=== PATIENT | female | born 2000 | race Caucasian/White ===

== ENCOUNTER 2022-01-30 01:00 | Inpatient (IN) | payer BC, MEDICAID ==
[~2022-01-30 01:00] MED LIST: Bupivacaine 0.25% 10 ML SDV ONE
[2022-01-30] MEDS ORDERED: Lidocaine 1% 50 ML MDV INJECT PRN (01:23)
[2022-01-30] MEDS ORDERED: Nalbuphine HCl 10 MG/ 1ML Amp IVPUSH PRN (01:23)
[2022-01-30] MEDS ORDERED: Ondansetron 4 MG/2 ML SDV IVPUSH PRN (01:23)
[2022-01-30] MEDS ORDERED: Ampicillin 2 GM in Sodium Chloride 0.9% 100 ML IV ONE (01:23)
[2022-01-30] MEDS ORDERED: Calcium Carbonate 500 MG Tab.Chew PO PRN (01:23)
[2022-01-30] MEDS ORDERED: Oxytocin/Lactated Ringers 10 UNIT/1,000 ML BAG IV SCH ×2 (01:30→13:30)
[2022-01-30] MEDS ORDERED: Ampicillin 2 GM AdvVial IV ONE (01:36)
[2022-01-30] MEDS ORDERED: Sodium Chloride 0.9% 100 ML ONE (01:36)
[2022-01-30] MEDS: Lactated Ringers 1,000 ML IV SCH ×2 (01:43→09:13)
[2022-01-30] MEDS: Ampicillin 1 GM in Sodium Chloride 0.9% 100 ML IV SCH ×2 (05:33→09:14)
[2022-01-30] MEDS ORDERED: fentaNYL 100 MCG/2 ML SDV EPIDUR PRN (09:17)
[2022-01-30] MEDS ORDERED: Bupivacaine/fentaNYL/NS 100 ML Bag EPIDUR PRN (09:17)
[2022-01-30] MEDS ORDERED: ePHEDrine 50 MG/ML SDV IVPUSH PRN (09:17)
[2022-01-30] MEDS ORDERED: diphenhydrAMINE 50 MG/ML SDV IVPUSH PRN (09:17)
[2022-01-30] MEDS ORDERED: Acetaminophen 325 MG Tab PO PRN (13:30)
[2022-01-30] MEDS ORDERED: Witch Hazel Medicated Pads 40/Jar TOP PRN (13:30)
[2022-01-30] MEDS ORDERED: Hydrocortisone Acetate 25 MG Supp RECTAL PRN (13:30)
[2022-01-30] MEDS ORDERED: Ibuprofen 600 MG Tab PO PRN (13:30)
[2022-01-30] MEDS ORDERED: Magnesium Hydroxide 400 MG/5 ML Susp 30 ML Cup PO PRN (13:30)
[2022-01-30] MEDS ORDERED: Docusate Sodium 100 MG Cap PO PRN (13:30)
[2022-01-30] MEDS ORDERED: Benzocaine/Menthol 20%-0.5% Spray 78 GM Cannister TOP PRN (13:30)
[2022-01-31] MEDS ORDERED: Prenatal Multivitamin with Calcium/Folic Acid/Iron Tab PO SCH (09:00)
== END 2022-01-31 14:05 | disposition home or self-care (01) | DRG 560 ==
LOC: JD.OBCHECK 01:00 → JD.OB 01:31 → OBSVTOIN 11:51 → JD.OB 11:51
PROVIDERS: ADMIT Obstetrics & Gynecology; ATTEND Obstetrics & Gynecology
PROC: 10E0XZZ Delivery of Products of Conception, External Approach (ICD-10-PCS; principal; 2022-01-30)
PROC: 3E0R3BZ Introduction of Anesthetic Agent into Spinal Canal, Percutaneous Approach (ICD-10-PCS; 2022-01-30)
PROC: 00HU33Z Insertion of Infusion Device into Spinal Canal, Percutaneous Approach (ICD-10-PCS; 2022-01-30)
PROC: 0HQ9XZZ Repair Perineum Skin, External Approach (ICD-10-PCS; 2022-01-30)
PROC: 10907ZC Drainage of Amniotic Fluid, Therapeutic from Products of Conception, Via Natural or Artificial Opening (ICD-10-PCS; 2022-01-30)
DX: O99.824 Streptococcus B carrier state complicating childbirth (principal); O69.81X0 Labor and delivery complicated by cord around neck, without compression, not applicable or unspecified; Z3A.39 39 weeks gestation of pregnancy; Z37.0 Single live birth; O70.0 First degree perineal laceration during delivery; O71.89 Other specified obstetric trauma; O99.334 Smoking (tobacco) complicating childbirth; F17.200 Nicotine dependence, unspecified, uncomplicated; O99.214 Obesity complicating childbirth; E66.9 Obesity, unspecified
CPT/HCPCS: 36415; 51701; 59025; 59409; 85025; 86592; 86850; 86900; 86901; A9270-GY; J0290; J2590; J3010; J7120

== ENCOUNTER 2024-02-01 16:33 | Emergency (ER) | payer BC, MEDICAID ==
[2024-02-01] MEDS: Iopamidol 755 Mg/ML 100 ML Bottle IVPUSH ONE (16:54)
[2024-02-01] MEDS: Sodium Chloride 0.9% 10 ML Syringe FLUSH ONE (16:54)
[2024-02-01] MEDS: Sodium Chloride 0.9% 100 ML IV SCH (16:54)
[2024-02-01 16:55] LABS: BASOPHILS PERCENT AUTO 0.3 % (0.0-1.0); EOSINOPHILS PERCENT AUTO 0.2 % (0.0-6.0); HEMATOCRIT 38.3 % (37.0-47.0); IMMATURE GRAN ABSOLUTE AUTO 0.02 K/mm3 (0.00-0.05); IMMATURE GRAN PERCENT AUTO 0.2 % (0.0-0.4); LYMPHOCYTES ABSOLUTE AUTO 1.3 K/mm3 (1.0-4.8); LYMPHOCYTES PERCENT AUTO 14.2 % (24.0-44.0); MEAN CORPUSCULAR HEMOGLOBIN 30.9 pg (28.0-32.0); MEAN CORPUSCULAR HGB CONC 33.9 g/dl (32.0-36.0); MONOCYTES ABSOLUTE AUTO 0.5 K/mm3 (0.0-0.8); MONOCYTES PERCENT AUTO 5.2 % (0.0-8.0); NEUTROPHILS ABSOLUTE AUTO 7.5 K/mm3 (1.8-7.7); NEUTROPHILS PERCENT AUTO 79.9 % (41.0-71.0); PLATELET COUNT,PLT 180 K/mm3 (150-400); RED BLOOD CELL COUNT 4.21 M/mm3 (4.10-5.30); WHITE BLOOD CELL COUNT,WBC 9.35 K/mm3 (3.9-11.3)
[2024-02-01 17:03] LABS: INR 1.03; PROTHROMBIN TIME 10.9 SECONDS (9.7-12.0)
[2024-02-01 17:04] LABS: PTT,PARTIAL THROMBOPLSTIN TIME 29.3 SECONDS (21.7-31.4)
[2024-02-01 17:11] LABS: A/G RATIO 1.3 (1-2); ALANINE AMINOTRANSFERASE,ALT 23 U/L (14-59); ALBUMIN 4.2 g/dl (3.4-5.0); ALKALINE PHOSPHATASE 48 U/L (46-116); ANION GAP 11.8 (5-15); ASPARTATE AMNIOTRANSFERASE,AST 22 U/L (15-37); BILIRUBIN TOTAL 0.4 mg/dL (0.2-1.0); BLOOD UREA NITROGEN,BUN 9 mg/dL (7-18); BUN/CREATININE RATIO 11.3 (14-18); CARBON DIOXIDE,CO2 25 mEq/L (21-32); CHLORIDE,CL 103 mEq/L (98-107); CREATININE 0.8 mg/dL (0.55-1.02); ESTIMATED GFR 105 mL/min (>60); GLUCOSE RANDOM 96 mg/dL (70-99); POTASSIUM,K 3.8 mEq/L (3.5-5.1); PROTEIN TOTAL,TP 7.5 g/dl (6.4-8.2); SODIUM,NA 136 mEq/L (136-145)
[2024-02-01 17:30] LABS: TROPONIN I HIGH SENSITIVITY < 4 pg/mL (<=51)
[2024-02-01] MEDS: Tenecteplase 50 MG Kit IVPUSH ONE (18:41)
== END 2024-02-01 19:10 ==
LOC: JD.ED 16:33
DX: I63.312 Cerebral infarction due to thrombosis of left middle cerebral artery (principal); E66.9 Obesity, unspecified; Z68.27 Body mass index [BMI] 27.0-27.9, adult
CPT/HCPCS: 36415; 70450; 70496; 70498; 80053; 84484; 84702; 85025; 85610; 85730; 93005; 96374; 99285; J3101; J3490; Q9967; 93010

== ENCOUNTER 2024-10-11 23:28 | Inpatient (IN) | payer BC ==
[2024-10-11] MEDS ORDERED: Oxytocin/0.9 % Sodium Chloride 30 UNIT/500 ML BAG IV SCH (23:45)
[2024-10-11] MEDS ORDERED: Ondansetron 4 MG/2 ML SDV IVPUSH PRN (23:52)
[2024-10-11] MEDS ORDERED: Sodium Chloride 0.9% 10 ML Syringe FLUSH PRN (23:52)
[2024-10-11] MEDS ORDERED: Lidocaine 1% 50 ML MDV INJECT PRN (23:52)
[2024-10-11] MEDS ORDERED: Nalbuphine 10 MG/1 ML Vial IVPUSH PRN (23:52)
[2024-10-12] MEDS: Lactated Ringers 1,000 ML IV SCH (00:06)
[2024-10-12 00:23] LABS: BASOPHILS PERCENT AUTO 0.3 % (0.0-1.0); EOSINOPHILS PERCENT AUTO 0.3 % (0.0-6.0); HEMATOCRIT 36.2 % (37.0-47.0); HEMOGLOBIN 12.1 gm/dl (12.0-16.0); IMMATURE GRAN PERCENT AUTO 0.8 % (0.0-0.4); LYMPHOCYTES ABSOLUTE AUTO 2.1 K/mm3 (1.0-4.8); LYMPHOCYTES PERCENT AUTO 17.9 % (24.0-44.0); MEAN CORPUSCULAR HEMOGLOBIN 32.5 pg (28.0-32.0); MEAN CORPUSCULAR HGB CONC 33.4 g/dl (32.0-36.0); MEAN CORPUSCULAR VOLUME 97.3 fl (83.0-99.0); MEAN PLATELET VOLUME 10.3 fl (9.4-12.3); MONOCYTES ABSOLUTE AUTO 0.5 K/mm3 (0.0-0.8); MONOCYTES PERCENT AUTO 4.5 % (0.0-8.0); NEUTROPHILS PERCENT AUTO 76.2 % (41.0-71.0); PLATELET COUNT,PLT 140 K/mm3 (150-400); RED BLOOD CELL COUNT 3.72 M/mm3 (4.10-5.30)
[2024-10-12] MEDS ORDERED: diphenhydrAMINE 50 MG/ML SDV IVPUSH PRN (00:27)
[2024-10-12] MEDS ORDERED: ePHEDrine 50 MG/ML SDV IVPUSH PRN (00:27)
[2024-10-12] MEDS: Bupivacaine/fentaNYL/NS 100 ML Bag EPIDUR PRN (00:38)
[2024-10-12] MEDS: fentaNYL 100 MCG/2 ML SDV EPIDUR PRN (00:38)
[2024-10-12] MEDS: Oxytocin/0.9 % Sodium Chloride 30 UNIT/500 ML BAG IV SCH (01:24)
[2024-10-12] MEDS ORDERED: Witch Hazel Medicated Pads 40/Jar TOP PRN (04:09)
[2024-10-12] MEDS ORDERED: Acetaminophen 325 MG Tab PO PRN (04:09)
[2024-10-12] MEDS ORDERED: Benzocaine/Menthol 20%-0.5% Spray 78 GM Cannister TOP PRN (04:09)
[2024-10-12] MEDS ORDERED: Docusate Sodium 100 MG Cap PO PRN (04:09)
[2024-10-12] MEDS ORDERED: Sodium Chloride 0.9% 10 ML SDV ONE (07:00)
[2024-10-12] MEDS ORDERED: Bupivacaine 0.25% 10 ML SDV ONE (07:00)
[2024-10-12] MEDS: Ibuprofen 600 MG Tab PO SCH (07:20)
[2024-10-12] MEDS ORDERED: Sodium Chloride 0.9% 10 ML Syringe FLUSH SCH (09:00)
[2024-10-12] MEDS: Enoxaparin 40 MG/0.4 ML Syringe SUBCUT ONE (12:50)
[2024-10-12] MEDS ORDERED: Enoxaparin 40 MG/0.4 ML Syringe SUBCUT ONE (13:00)
== END 2024-10-13 11:15 | disposition home or self-care (01) | DRG 560 ==
LOC: JD.OBCHECK 23:28 → JD.OB 23:33 → JD.OBCHECK 23:52 → JD.OB 23:58 → OBSVTOIN 10-12 01:22 → JD.OB 10-12 01:23
PROVIDERS: ADMIT Obstetrics & Gynecology; ATTEND Obstetrics & Gynecology
PROC: 3E0R3BZ Introduction of Anesthetic Agent into Spinal Canal, Percutaneous Approach (ICD-10-PCS; principal; 2024-10-12)
PROC: 10E0XZZ Delivery of Products of Conception, External Approach (ICD-10-PCS; 2024-10-12)
PROC: 00HU33Z Insertion of Infusion Device into Spinal Canal, Percutaneous Approach (ICD-10-PCS; 2024-10-12)
DX: O99.892 Other specified diseases and conditions complicating childbirth (principal); Z37.0 Single live birth; Q21.12 Patent foramen ovale; O69.81X0 Labor and delivery complicated by cord around neck, without compression, not applicable or unspecified; Z3A.39 39 weeks gestation of pregnancy
CPT/HCPCS: 36415; 51701; 59025; 59409; 85025; 86592; 86850; 86900; 86901; A9270-GY; J0665; J1650; J3010; J3490; J7120; J7999